=== PATIENT | female | born 1940 | race Caucasian/White ===

== ENCOUNTER → 2016-05-06 | Outpatient (CLI) | payer MEDICARE, BC ==
[~2016-05-06] MED LIST: ALLEGRA DPS180 MG PO; ASA CHILDREN'S81 MG PO; CALTRATE-600 D600 MG PO; EVISTA DPS60 MG PO; MAALOX DPS30 ML PO; MOBIC15 MG PO; OMEGA-3 DPS1000 MG PO; PRILOSEC DPS20 MG PO; TOPROL XL200 MG PO; TYLENOL DPS325 MG PO; VITAMIN E1000 UNI3 PO; XARELTO15 MG PO; XARELTO20 MG PO; ZESTRIL DPS5 MG PO; ZETIA10 MG PO
== END | disposition home or self-care (01) ==
LOC: RAD.S 13:08
DX: N20.0 Calculus of kidney (principal); M47.816 Spondylosis without myelopathy or radiculopathy, lumbar region; M41.9 Scoliosis, unspecified